=== PATIENT | male | born 1945 | race Caucasian/White ===

== ENCOUNTER → 2019-03-26 | Day surgery (SDC) | payer MEDICARE ==
[2019-03-25 09:26] VITALS: BMI 36.3
[~2019-03-26] MED LIST: BALANCED SALT IRRIG SOLN COMB2 15 ML IRRIG.SOLN INTRAOCULA ONE; EPINEPHrine (PF) 0.3 ML in BALANCED SALT IRRIG SOLN COMB2 500 ML IRRIGATION ONE; HYALURONATE SODIUM INTRAOCULAR 1 EACH SYRINGE (12MG/ML) INTRAOCULA ONE; LACTATED RINGERS 1,000 ML IV SCH; LIDOCAINE 1% (PF) 10MG/ML VIAL SQ ONE; LIDOCAINE 1% 20 ML VIAL (10MG/ML) FOR IV START INTRADERMA PRN; MIDAZOLAM 2 MG/2 ML VIAL ONE; MOXIFLOXACIN HCL 0.5% DROPS 3 ML BTL OP ONE; TETRACAINE 0.5% OPHTH (PF) DROPS 4 ML BTL OP SCH; TIMOLOL 0.5% OPHTH DROPS 5 ML BTL OP ONE; TOBRAMYCIN 0.3% OPHTH DROPS 5 ML BTL RIGHT EYE PRN; fentaNYL (PF) 50 MCG/ML 2 ML AMP ONE
[2019-03-26] MEDS: CYCLOPENTOLATE 1% OPHTH SOLN 2 ML BTL OP SCH ×3 (06:40→07:02)
[2019-03-26] MEDS: PHENYLEPHRINE 2.5% OPHTH DRP 2ML OP SCH ×3 (06:45→07:05)
[2019-03-26 06:51] LABS: Glucose,Whole Blood 103 mg/dL (75-99)
[2019-03-26 06:56] VITALS: RESP 16; TEMP 97.8
--- NOTE | 2019-03-26 08:05 | P.OP ---
Date of Procedure: 03/26/19 Preoperative Diagnosis: NS & CS Postoperative Diagnosis: same Procedure(s) Performed: PIOL, OD Implants: PCB0 Anesthesia: MAC Surgeon: Dash Whittaker Pathology: none sent Condition: stable Disposition: same day Indications for Procedure: blurry vision Operative Findings: no complications
[2019-03-26 08:27] VITALS: BP 110/69; PULSE 64
--- NOTE | 2019-03-26 20:31 | OP ---
OPERATIVE REPORT DATE OF SURGERY: 03/26/2019. PROCEDURE: Phacoemulsification of cataract and intraocular lens implant of the right eye. PREOPERATIVE DIAGNOSIS: Nuclear sclerosis and cortical sclerosis, right eye. POSTOPERATIVE DIAGNOSIS: Nuclear sclerosis and cortical sclerosis, right eye. ESTIMATED BLOOD LOSS: Zero. SPECIMEN TAKEN: None. NARRATIVE: After obtaining the appropriate consent, the patient was brought to the operating room where the patient was placed under cardiac monitoring and prepped and draped in the usual sterile manner. At the 11 o'clock position, a 15-degree super sharp blade was used to create a paracentesis followed by instillation of 1% Xylocaine MPF 50:50 mix with BSS into the anterior chamber. This was followed by Amvisc to stabilize the anterior chamber. At the 9 o'clock position a self-sealing corneal flap incision was created using 2.8 mm bobbi keratome. A cystotome was used to initiate a continuous tear capsulorrhexis which was completed with the Utrata forceps. A Binkhorst cannula was used to hydrodissect the lens nucleus followed by hydrodelineation. Phacoemulsification of the lens was performed utilizing phaco chop in 14.4 seconds at 18% power. The remaining cortical material was removed using the irrigation aspiration mode followed by additional 1% Xylocaine MPF into the anterior chamber followed by viscoelastic to stabilize the capsular bag. A [employer] PCB00 24.5 diopter posterior chamber lens was placed into the capsular bag without difficulty. The remaining viscoelastic material was removed from the anterior chamber with the irrigation/aspiration. Balanced salt solution was used to normalize the intraocular pressure. The incision was checked for watertight integrity. The patient then received two drops of 0.5% timolol followed by two drops tobramycin, was lightly patched and shielded in the usual manner. There were no complications from the procedure. The patient tolerated the procedure well and was returned to Recovery in good condition. MMODL / IJN: [id number] / [facility]ITALPaul
== END | disposition home or self-care (01) ==
LOC: OR 06:06
PROVIDERS: ATTEND Ophthalmology
DX: H25.811 Combined forms of age-related cataract, right eye (principal); E11.36 Type 2 diabetes mellitus with diabetic cataract; H35.3221 Exudative age-related macular degeneration, left eye, with active choroidal neovascularization; H35.3131 Nonexudative age-related macular degeneration, bilateral, early dry stage; H35.3112 Nonexudative age-related macular degeneration, right eye, intermediate dry stage; H04.122 Dry eye syndrome of left lacrimal gland; H16.222 Keratoconjunctivitis sicca, not specified as Sjogren's, left eye; H00.023 Hordeolum internum right eye, unspecified eyelid; H40.031 Anatomical narrow angle, right eye; H00.026 Hordeolum internum left eye, unspecified eyelid; H52.12 Myopia, left eye; H40.053 Ocular hypertension, bilateral; I11.9 Hypertensive heart disease without heart failure; I48.91 Unspecified atrial fibrillation; G25.81 Restless legs syndrome; H53.001 Unspecified amblyopia, right eye; H40.1131 Primary open-angle glaucoma, bilateral, mild stage; E78.5 Hyperlipidemia, unspecified; M54.10 Radiculopathy, site unspecified; Z88.6 Allergy status to analgesic agent; Z88.2 Allergy status to sulfonamides; Z88.0 Allergy status to penicillin; Z88.1 Allergy status to other antibiotic agents; Z98.42 Cataract extraction status, left eye; Z96.1 Presence of intraocular lens; Z98.890 Other specified postprocedural states; Z87.442 Personal history of urinary calculi; Z79.84 Long term (current) use of oral hypoglycemic drugs; Z79.899 Other long term (current) drug therapy; Z79.01 Long term (current) use of anticoagulants; Z79.891 Long term (current) use of opiate analgesic; Z83.511 Family history of glaucoma; Z82.49 Family history of ischemic heart disease and other diseases of the circulatory system; Z82.3 Family history of stroke; Z51.81 Encounter for therapeutic drug level monitoring; Z87.891 Personal history of nicotine dependence; Z98.1 Arthrodesis status
CPT/HCPCS: 66984; C1780; J2250; J0171; J3010; J2001